=== PATIENT | female | born 1970 | race Hispanic/Latino ===

== ENCOUNTER 2019-01-07 21:54 | Emergency (ER) | payer OTHER ==
[2019-01-07] MEDS ORDERED: NACL 0.9% 1000 ML 1,000 ML IV ONE (22:04)
--- NOTE | 2019-01-07 22:39 | Emergency Department Report ---
ED Abdominal Pain HPI - General Chief Complaint: Abdominal Pain Stated Complaint: ABD PAIN Time Seen by Provider: 01/07/19 22:20 Source: EMS Mode of arrival: Stretcher Limitations: No Limitations - History of Present Illness Initial Comments: Patient is a 48-year-old female that presents emergency room with complaints of epigastric pain. Patient states that her symptoms are improving. Patient states at 6 PM she had 10 out of 10 epigastric pain. Patient states in route she was given Zofran and her pain decreased to a 6 out of 10. Patient states h er pain continues to improve. Patient states she had nausea without vomiting. Patient states her symptoms started immediately after eating dinner tonight. Patient states she ate cheese, hamburger meat and pasta for dinner. MD Complaint: abdominal pain -: Sudden Location: epigastric Migration to: no migration Severity: moderate Severity scale (0 -10): 6 Quality: cramping Consistency: constant Improves With: medication, rest Worsens With: eating Associated Symptoms: nausea. denies: vomiting, diarrhea, fever, chills, c onstipation, dysuria, hematemesis, hematochezia, melena, hematuria, anorexia Treatments Prior to Arrival: antacids, other (Zofran IV by EMS) - Related Data LMP (females 10-50): last week Previous Rx's Medication Instructions Recorded Last Taken Type Esomeprazole Magnesium [NexIUM] 40 mg PO QDAY #30 capsule. 01/07/19 Unknown Rx Allergies Allergy/AdvReac Type Severity Reaction Status Date / Time epinephrine Allergy Shortness Verified 01/07/19 22:04 of Breath naproxen Allergy Hives Verified 01/07/19 22:04 ED Review of Systems ROS: Stated complaint: ABD PAIN Other details as noted in HPI Constitutional: denies: chills, fever Eyes: denies: eye pain, eye discharge, vision change ENT: denies: ear pain, throat pain Respiratory: denies: cough, shortness of breath, wheezing Cardiovascular: denies: chest pain, palpitations Endocrine: no symptoms reported Gastrointestinal: abdominal pain, nausea. denies: vomiting, diarrhea, constipat ion, hematemesis Genitourinary: denies: urgency, dysuria, discharge Musculoskeletal: denies: back pain, joint swelling, arthralgia Skin: denies: rash, lesions Neurological: denies: headache, weakness, paresthesias Psychiatric: denies: anxiety, depression Hematological/Lymphatic: denies: easy bleeding, easy bruising ED Past Medical Hx - Past Medical History Previous Medical History?: No - Surgical History Past Surgical History?: No - Family History Family history: no significant - Social History Smoking Status: Never Smoker Substance Use Type: None - Medications Home Medications: Home Medications Medication Instructions Recorded Confirmed Last Taken Type Esomeprazole Magnesium [NexIUM] 40 mg PO QDAY #30 capsule. 01/07/19 Unknown Rx ED Physical Exam - General Limitations: No Limitations General appearance: alert, in no apparent distress - Head Head exam: Present: atraumatic, normocephalic - Eye Eye exam: Present: normal appearance - ENT ENT exam: Present: mucous membranes moist - Neck Neck exam: Present: normal inspection - Respiratory Respiratory exam: Present: normal lung sounds bilaterally. Absent: respiratory distress - Cardiovascular Cardiovascular Exam: Present: regular rate, normal rhythm. Absent: systolic murmur, diastolic murmur, rubs, gallop - GI/Abdominal GI/Abdominal exam: Present: soft, tenderness (epigastric tenderness), normal bowel sounds, other (no tenderness over the gallbladder. Negative Vera sign). Absent: distended, guarding, rebound, diminished bowel sounds, hyperactive bowel sounds, hypoactive bowel sounds, organomegaly - Rectal Rectal exam: Present: deferred - Extremities Exam Extremities exam: Present: normal inspection - Back Exam Back exam: Present: normal inspection - Neurological Exam Neurological exam: Present: alert, oriented X3 - Psychiatric Psychiatric exam: Present: normal affect, normal mood - Skin Skin exam: Present: warm, dry, intact, normal color. Absent: rash ED Course Vital Signs 01/07/19 01/07/19 01/07/19 22:00 22:01 22:02 Temperature 98.1 F Pulse Rate 77 70 74 Respiratory 9 L 11 L Rate Blood Pressure 103/45 114/57 O2 Sat by Pulse 98 96 Oximetry 01/07/19 01/07/19 01/07/19 22:16 22:30 22:46 Temperature Pulse Rate 72 69 72 Respiratory 10 L 10 L 14 Rate Blood Pressure 114/57 O2 Sat by Pulse 94 98 98 Oximetry 01/07/19 01/07/19 01/07/19 23:00 23:16 23:30 Temperature Pulse Rate 73 83 67 Respiratory 10 L 22 18 Rate Blood Pressure 115/67 115/67 113/50 O2 Sat by Pulse 94 96 94 Oximetry 01/07/19 01/08/19 01/08/19 23:46 00:00 00:16 Temperature Pulse Rate 67 72 69 Respiratory 12 12 12 Rate Blood Pressure 115/67 122/62 122/62 O2 Sat by Pulse 98 94 98 Oximetry - Reevaluation(s) Reevaluation #1: Patient states all of her symptoms have resolved. 01/07/19 23:49 Stressed all results with patient. Patient is stable for discharge. Patient given discharge instructions. Patient voiced understanding of discharge instructions. 01/08/19 00:10 ED Medical Decision Making - Lab Data Result diagrams: 01/07/19 22:35 01/07/19 22:35 - Medical Decision Making Patient is a 48-year-old female that presents to emergency room with complaints of epigastric pain. Patient's epigastric pain secondary to gastritis. Patient given Maalox. Patient's symptoms completely resolved. Patient has nausea without vomiting and was given Zofran in route by EMS and her nausea completely resolved. Patient will be given a prescription for Nexium. Patient's labs unremarkable except for asymptomatic pyuria. Patient does not require antibiotics. Patient given discharge instructions. Patient is stable for discharge. Patient will be discharged home. - Differential Diagnosis epigastric pain. Gastritis. GERD. Critical care attestation.: If time is entered above; I have spent that time in minutes in the direct care of this critically ill patient, excluding procedure time. ED Disposition Clinical Impression: Nausea Abdominal pain Qualifiers: Abdominal location: epigastric Qualified Code(s): R10.13 - Epigastric pain Gastritis Qualifiers: Gastritis type: unspecified gastritis Chronicity: acute Gastritis bleeding: without bleeding Qualified Code(s): K29.00 - Acute gastritis without bleeding Disposition: DC-01 TO HOME OR SELFCARE Is pt being admited?: No Does the pt Need Aspirin: No Condition: Stable Instructions: Gastritis (ED), Diet for Ulcers and Gastritis (ED), Gastroesophageal Reflux Disease (ED), Abdominal Pain (ED) Additional Instructions: Patient to follow up with primary care in 2-3 days. Patient to follow-up with GI in 2-3 days. Patient to increase water. Patient needed a GERD diet. Patient to rest. Patient take Tylenol when necessary for pain. Patient to avoid NSAIDs and fatty and spicy foods. Patient to increase water. Prescriptions: Esomeprazole Magnesium [NexIUM] 40 mg PO QDAY #30 capsule.dr Referrals: YOSSI BRUNOABBOTSFORD MD HAROLDO [Primary Care Provider] - 2-3 Days MYNOR FLORES MD [Staff Physician] - 2-3 Days Time of Disposition: 23:52
[2019-01-07 22:44] LABS: Basophils # (Auto) 0.1 K/mm3 (0.0-0.1); Basophils % (Auto) 0.7 % (0.0-1.8); Eosinophils # (Auto) 0.1 K/mm3 (0.0-0.4); Eosinophils % (Auto) 1.5 % (0.0-4.3); Hematocrit 40.4 % (30.3-42.9); Hemoglobin 13.9 gm/dl (10.1-14.3); Lymphocytes # (Auto) 1.8 K/mm3 (1.2-5.4); Lymphocytes % (Auto) 21.8 % (13.4-35.0); Mean Corpuscular HGB Conc 34 % (30-34); Mean Corpuscular Volume 95 fl (79-97); Monocytes # (Auto) 0.6 K/mm3 (0.0-0.8); Monocytes % (Auto) 6.9 % (0.0-7.3); Platelet Count 201 K/mm3 (140-440); Red Blood Count 4.24 M/mm3 (3.65-5.03); Red Cell Distribution Width 13.3 % (13.2-15.2)
[2019-01-07 23:04] LABS: Alanine Aminotransferase 33 units/L (7-56); Albumin 3.7 g/dL (3.9-5); BUN/Creatinine Ratio 10; Blood Urea Nitrogen 8 mg/dL (7-17); Hemolysis Index 7
[2019-01-07] MEDS ORDERED: ALUM-MAG HYDROX-SIMETH 200-200-20MG/5ML PO ONE (23:49)
[2019-01-07 23:52] LABS: Bacteria,Urine 1+ /HPF (Negative); Bilirubin,Urine NEG (Negative); Blood,Urine SM (Negative); Color,Urine Yellow (Yellow); Mucus,Urine FEW /HPF; Protein,Urine <15 mg/dL mg/dL (Negative); Urobilinogen,Urine < 2.0 mg/dL (<2.0)
[2019-01-08 00:19] VITALS: BP 122/62
== END 2019-01-08 00:25 | disposition home or self-care (01) ==
LOC: ED 21:54
DX: K29.00 Acute gastritis without bleeding (principal)
CPT/HCPCS: 36415; 80053; 81001; 83690; 84703; 85025; 99284; J7030